=== PATIENT | female | born 1980 | race Caucasian/White ===

== ENCOUNTER 2018-06-01 22:29 | Emergency (ER) | payer MEDICAID ==
[~2018-06-01] VITALS: Ht 170.2 cm; Wt 122.7 kg
[2018-06-01 22:36] VITALS: BP 144/93
== END 2018-06-02 00:56 | disposition left against medical advice (07) ==
LOC: ER 22:30
DX: M25.511 Pain in right shoulder (principal); Z53.21 Procedure and treatment not carried out due to patient leaving prior to being seen by health care provider